=== PATIENT | male | born 1955 | race Caucasian/White ===

== ENCOUNTER 2025-04-18 11:58 | Outpatient (CLI) | payer BC, MEDICARE ==
[2025-04-18 14:09] LABS: #Basophils 0.06 10x3/uL (0.0-0.2); #Eosinophils 0.08 10x3/uL (0.0-0.7); #Monocytes 0.47 10x3/uL (0.11-0.59); #Neutrophils 5.26 10x3/uL (1.40-6.50); %Basophils 0.8 % (0.0-1.0); %Eosinophils 1.1 % (0.0-10.0); %Lymphocytes 17.8 % (21.0-51.0); %Monocytes 6.5 % (0.0-10.0); %Neutrophils 72.7 % (42.0-75.0); Hematocrit 46.5 % (42.0-52.0); Hemoglobin 15.1 g/dL (14.0-18.0); Mean Corpuscular Hemoglobin 30.1 pg (27.0-31.0); Mean Corpuscular Volume 92.6 fL (78.0-98.0); Platelet Count 220 10x3/uL (130-400); Red Blood Cell (RBC) Count 5.02 mill/uL (4.70-6.10); White Blood Cell (WBC) Count 7.24 10x3/uL (4.8-10.8)
[2025-04-18 14:26] LABS: Anion Gap 12 mmol/L (10-20); BUN (Urea Nitrogen) 17 mg/dL (8.4-25.7); Calc. Creatinine Clearance 0 mL/min (70-130); Calcium 9.3 mg/dL (7.8-10.44); Carbon Dioxide 25 mmol/L (23-31); Chloride 105 mmol/L (98-107); Glucose 180 mg/dL (83-110); INR-International Normal Ratio 1.1; Potassium 4.3 mmol/L (3.5-5.1); Prothrombin Time 13.9 sec (12.0-14.7); Sodium 138 mmol/L (136-145)
[2025-04-18 14:28] LABS: Bacteria/HPF None Seen HPF (None Seen); Glucose, Urine (Dipstick) 500 mg/dL (Negative); Leukocyte Negative Leu/uL (Negative); Protein, Urine (Dipstick) Negative (Neg-Trace); RBC/HPF 0-3 HPF (0-3); Specific Gravity, Urine 1.014 (1.002-1.036); WBC/HPF None Seen HPF (0-3)
== END 2025-04-18 11:59 | disposition home or self-care (01) ==
LOC: LABBT 11:58
PROVIDERS: ATTEND Orthopaedic Surgery
DX: Z01.818 Encounter for other preprocedural examination (principal); M17.12 Unilateral primary osteoarthritis, left knee
CPT/HCPCS: 71046; 80048; 81001; 85025; 85610; 87081

== ENCOUNTER 2025-04-18 12:57 | Outpatient (CLI) | payer BC, MEDICARE | END 2025-04-18 12:58 | disposition home or self-care (01) | LOC: CT 12:57 | PROVIDERS: ATTEND Orthopaedic Surgery | DX: M17.12 Unilateral primary osteoarthritis, left knee (principal) | CPT/HCPCS: 71046; 80048; 81001; 85025; 85610; 87081 ==

== ENCOUNTER 2025-04-25 09:38 | Observation (INO) | payer MEDICARE, BC ==
[2025-04-18 12:26] VITALS: BMI 26.6
[2025-04-25] MEDS ORDERED: Ropivacaine 0.5% HCl/PF (150 MG/30 ML VIAL) ONE (09:48)
[2025-04-25] MEDS ORDERED: CEFAZOLIN 2 GM VIAL ONE (10:30)
[2025-04-25] MEDS ORDERED: Tranexamic Acid 1,000 MG/10 ML VIAL ONE ×2 (10:30→13:22)
[2025-04-25] MEDS ORDERED: Vancomycin 1 GM/200 ML (PREMIX FOIL) BAG ONE (10:31)
[2025-04-25] MEDS ORDERED: HYDROcodone/Acetaminophen 10/325 mg Tablet PO PRN (11:15)
[2025-04-25] MEDS ORDERED: Ropivacaine 0.2% 550 ML 550 ML NERVE BLCK SCH (11:15)
[2025-04-25] MEDS ORDERED: fentaNYL PF 100 MCG/2 ML SYRINGE ONE ×2 (11:17→13:22)
[2025-04-25] MEDS ORDERED: PROPOFOL 20 ML ONE (11:17)
[2025-04-25] MEDS ORDERED: PHENYLEPHRINE-NS 100 MCG/ML 10 ML SYRINGE ONE (11:20)
[2025-04-25] MEDS ORDERED: Ketorolac Tromethamine 30 MG (1 mL) VIAL ONE (11:24)
[2025-04-25] MEDS ORDERED: Ondansetron PF 4 MG/2 ML Vial ONE (11:24)
[2025-04-25] MEDS ORDERED: Ondansetron PF 4 MG/2 ML Vial IVP PRN (12:56)
[2025-04-25] MEDS ORDERED: diphenhydrAMINE 25 MG CAP PO PRN (12:56)
[2025-04-25] MEDS ORDERED: Acetaminophen 325 MG TAB PO PRN (12:56)
[2025-04-25] MEDS ORDERED: HYDROmorphone 0.5 MG/0.5 ML SYRINGE ONE ×2 (13:39→13:49)
[2025-04-25] MEDS ORDERED: HYDROmorphone 0.5 MG/0.5 ML SYR SLOW IVP PRN (14:15)
[2025-04-25] MEDS: Ketorolac Tromethamine 30 MG (1 mL) VIAL IVP SCH (14:57)
[2025-04-25] MEDS: metFORMIN 500 MG TAB PO SCH (17:20)
[2025-04-25] MEDS: Ondansetron PF 4 MG/2 ML Vial IVP PRN (17:30)
[2025-04-25] MEDS: Atenolol 25 MG TAB PO SCH (20:19)
[2025-04-25] MEDS: Ferrous Gluconate 324 MG TAB PO SCH (20:20)
[2025-04-25] MEDS: Aspirin 81 mg Enteric Coated Tablet PO SCH (20:20)
[2025-04-25] MEDS: Senokot S 8.6-50 MG TAB PO SCH (20:20)
[2025-04-25] MEDS: Lisinopril 10 MG TAB PO SCH (20:20)
[2025-04-26] MEDS: Vancomycin 1 GM in Premix 1 BAG IVPB SCH (00:06)
[2025-04-26 05:52] LABS: Hematocrit 38.2 % (42.0-52.0); Hemoglobin 12.0 g/dL (14.0-18.0); Mean Corpuscular Hemoglobin 30.3 pg (27.0-31.0); Mean Corpuscular Volume 96.5 fL (78.0-98.0); Platelet Count 170 10x3/uL (130-400); Red Blood Cell (RBC) Count 3.96 mill/uL (4.70-6.10); White Blood Cell (WBC) Count 9.20 10x3/uL (4.8-10.8)
[2025-04-26] MEDS: Multivitamin W/ Minerals 1 TAB PO SCH (08:48)
[2025-04-26] MEDS: Ezetimibe 10 MG TAB PO SCH (08:48)
[2025-04-26] MEDS: HYDROcodone/Acetaminophen 10/325 mg Tablet PO PRN (08:49)
[2025-04-26] MEDS: PNEUMOC 20-VAL CONJ-DIP CRM/PF 0.5 ML SYRINGE IM ONE (08:54)
[2025-04-26] MEDS ORDERED: CHOLECALCIFEROL 250 MCG PO SCH (09:00)
[2025-04-26 11:52] VITALS: BP 101/60; TEMP 98.5
[2025-04-26] MEDS: HYDROcodone/Acetaminophen 5/325 mg Tablet PO SCH (13:44)
== END 2025-04-26 15:52 | disposition home or self-care (01) ==
LOC: SDC 09:38 → SURG A 14:29 → SDC 18:22 → SURG A 18:23
PROVIDERS: ADMIT Orthopaedic Surgery; ATTEND Orthopaedic Surgery
PROC: 0SRD0JZ Replacement of Left Knee Joint with Synthetic Substitute, Open Approach (ICD-10-PCS; principal; 2025-04-26)
PROC: 3E0T3BZ Introduction of Anesthetic Agent into Peripheral Nerves and Plexi, Percutaneous Approach (ICD-10-PCS; 2025-04-26)
DX: M17.0 Bilateral primary osteoarthritis of knee (principal); F17.200 Nicotine dependence, unspecified, uncomplicated; I10 Essential (primary) hypertension; E78.5 Hyperlipidemia, unspecified; Z79.899 Other long term (current) drug therapy
CPT/HCPCS: 0055T; 27447; 64447; 36415; 36416; 85027; A4306; C1713; C1776; C1889; J0665; J1100; J1171; J1885; J2250; J2405; J2704; J2795; J3010; J3372; J3373